=== PATIENT | male | born 1990 | race Asian ===

== ENCOUNTER 2018-01-12 03:09 | Emergency (ER) | payer SELFPAY ==
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
[2018-01-12] MEDS ORDERED: TYLENOL #3 PO ONE (04:05)
[2018-01-12 06:20] VITALS: BP 127/80
--- NOTE | 2018-01-12 06:57 | Cat Scan Report ---
FINAL REPORT EXAM: CT HEAD/BRAIN WO CON HISTORY: trauma TECHNIQUE: CT imaging acquired through the head without intravenous contrast. Transaxial reformations are provided. PRIORS: None. FINDINGS: The ventricles, cisterns and sulci are normal. No intraparenchymal or extra-axial mass, hemorrhage, or mass effect. Bhandari and white-matter differentiation is normal. Normal spherical shape of the globes. Paranasal sinuses and mastoid air cells are clear. No skull or facial fracture visualized. IMPRESSION: No acute intracranial abnormality.
--- NOTE | 2018-01-12 07:11 | Cat Scan Report ---
FINAL REPORT EXAM: CT CERVICAL SPINE WO CON HISTORY: trauma TECHNIQUE: CT imaging is acquired through the cervical spine without contrast. Transaxial, coronal and sagittal reformations are provided. PRIORS: None. FINDINGS: The cervical spine is intact. Vertebral body heights are preserved. No acute fracture or listhesis. Atlanto-dens interval and odontoid process are intact. Intervertebral disc spaces are preserved. No perivertebral soft tissue swelling or hematoma identified. Limited soft tissue exam of the visualized neck is remarkable for multiple bilateral prominent cervical lymph nodes, the largest of which is around the level of the hyoid bone posterior to the sternocleidomastoid on axial series 4, image 81 measuring up to 17 x 13 x 13 millimeters. Right greater than left level II lymph nodes measure up to at least 14 x 16 x 15 millimeters. IMPRESSION: No acute cervical spine fracture identified. Correlate with physical exam and follow up as warranted. Bilateral cervical lymphadenopathy. Correlation for infectious symptoms is requested. Consider follow-up neck CT with contrast in 3 months.
== END 2018-01-12 07:52 | disposition home or self-care (01) ==
LOC: ED 03:09
DX: S16.1XXA Strain of muscle, fascia and tendon at neck level, initial encounter (principal); R51 Headache; R59.0 Localized enlarged lymph nodes; H92.02 Otalgia, left ear; F17.200 Nicotine dependence, unspecified, uncomplicated; W20.8XXA Other cause of strike by thrown, projected or falling object, initial encounter; Y93.55 Activity, bike riding; Y92.411 Interstate highway as the place of occurrence of the external cause; Y99.8 Other external cause status
CPT/HCPCS: 70450; 72125; 99283